=== PATIENT | female | born 1955 | race Caucasian/White ===

== ENCOUNTER 2016-07-25 11:40 | Inpatient (IN) | payer OTHER, MEDICARE ==
[2016-07-25] MEDS ORDERED: TRAZODONE 50 MG TAB PO PRN (12:00)
[2016-07-25] MEDS ORDERED: HALOPERIDOL 5 MG TAB PO PRN (12:00)
[2016-07-25] MEDS ORDERED: MAG HYDROX 30 ML UDC PO PRN (12:00)
[2016-07-25] MEDS ORDERED: LORAZEPAM 2 MG TAB PO PRN (12:00)
[2016-07-25] MEDS ORDERED: DIPHENHYDRAMINE 50 MG CAP PO PRN (12:00)
[2016-07-25] MEDS ORDERED: HALOPERIDOL 5 MG/ML VIAL IM PRN (12:00)
[2016-07-25] MEDS ORDERED: DIPHENHYDRAMINE 50 MG/ML VIAL IM PRN (12:00)
[2016-07-25] MEDS ORDERED: ACETAMINOPHEN 325 MG TAB PO PRN (12:00)
[2016-07-25] MEDS ORDERED: ALU/MAG/SIM 30 ML UDC PO PRN (12:00)
[2016-07-25] MEDS ORDERED: LORAZEPAM 2 MG/ML VIAL IM PRN (12:00)
[2016-07-25] MEDS ORDERED: *PINK BRACELET XX ONE (15:00)
[2016-07-25 19:00] VITALS: BP_SYST 140; RESP 18; TEMP 97.6
[2016-07-25] MEDS: *HOME MEDS KEPT IN PHARMACY XX SCH (20:00)
[2016-07-25] MEDS: HALOPERIDOL 5 MG TAB PO SCH (21:00)
[2016-07-26] MEDS: LEVOTHYROXINE 0.05 MG TAB PO SCH (07:00)
[2016-07-26] MEDS: *HOME MEDS KEPT IN PHARMACY XX SCH ×2 (08:00→20:00)
[2016-07-26] MEDS: NICOTINE 21 MG/24 HR TRANSDERM SCH (08:15)
[2016-07-26] MEDS: HALOPERIDOL 5 MG TAB PO SCH ×2 (08:15→21:00)
[2016-07-26] MEDS: ATENOLOL 25 MG TAB PO SCH (08:15)
[2016-07-26] MEDS: MULTIVITS/MINERALS (THERAGRAN M) TAB PO SCH (08:15)
[2016-07-27] MEDS: LEVOTHYROXINE 0.05 MG TAB PO SCH (06:07)
[2016-07-27] MEDS: *HOME MEDS KEPT IN PHARMACY XX SCH ×2 (07:32→20:57)
[2016-07-27] MEDS: NICOTINE 21 MG/24 HR TRANSDERM SCH (08:16)
[2016-07-27] MEDS: MULTIVITS/MINERALS (THERAGRAN M) TAB PO SCH (08:16)
[2016-07-27] MEDS: ATENOLOL 25 MG TAB PO SCH (08:16)
[2016-07-27] MEDS: HALOPERIDOL 5 MG TAB PO SCH ×2 (08:16→21:00)
[2016-07-28] MEDS: LEVOTHYROXINE 0.05 MG TAB PO SCH (06:40)
[2016-07-28] MEDS: *HOME MEDS KEPT IN PHARMACY XX SCH ×2 (07:33→20:21)
[2016-07-28] MEDS: HALOPERIDOL 5 MG TAB PO SCH ×2 (08:14→21:00)
[2016-07-28] MEDS: ATENOLOL 25 MG TAB PO SCH (08:14)
[2016-07-28] MEDS: MULTIVITS/MINERALS (THERAGRAN M) TAB PO SCH (08:14)
[2016-07-28] MEDS: NICOTINE 21 MG/24 HR TRANSDERM SCH (08:15)
[2016-07-29] MEDS: LEVOTHYROXINE 0.05 MG TAB PO SCH (06:34)
[2016-07-29] MEDS: NICOTINE 21 MG/24 HR TRANSDERM SCH (06:59)
[2016-07-29] MEDS: *HOME MEDS KEPT IN PHARMACY XX SCH (06:59)
[2016-07-29] MEDS: ATENOLOL 25 MG TAB PO SCH (06:59)
[2016-07-29] MEDS: HALOPERIDOL 5 MG TAB PO SCH (06:59)
[2016-07-29] MEDS: MULTIVITS/MINERALS (THERAGRAN M) TAB PO SCH (06:59)
[2016-07-29 07:12] VITALS: BP_SYST 140; RESP 18; TEMP 97.6
[2016-07-29 07:18] VITALS: BP_SYST 140; RESP 18; TEMP 97.6
== END 2016-07-29 13:15 | DRG 885 ==
LOC: ENRESERVDT → ENRESERVTM → PSY 12:11
PROVIDERS: ADMIT Psychiatry & Neurology Psychiatry; ATTEND Psychiatry & Neurology Psychiatry
DX: F20.9 Schizophrenia, unspecified (principal); I10 Essential (primary) hypertension; E03.9 Hypothyroidism, unspecified